=== PATIENT | female | born 1965 | race Two or more races ===

== ENCOUNTER 2018-09-28 07:17 | Day surgery (SDC) | payer OTHER ==
[~2018-09-28 07:17] MED LIST: CIPRO500 MG PO; PRILOSEC2.5 MG; PYRIDIUM200 MG PO; ZANTAC300 MG
== END 2018-09-28 12:15 | disposition home or self-care (01) ==
LOC: AMB-ENDOS 07:17
DX: K62.1 Rectal polyp (principal); K64.8 Other hemorrhoids

== ENCOUNTER 2021-08-23 11:07 | Emergency (ER) | payer OTHER ==
[~2021-08-23] VITALS: Ht 180.3 cm; Wt 111.1 kg
== END 2021-08-23 16:30 | disposition home or self-care (01) ==
LOC: ER 11:07
DX: M15.8 Other polyosteoarthritis (principal); M19.90 Unspecified osteoarthritis, unspecified site; Z88.8 Allergy status to other drugs, medicaments and biological substances

== ENCOUNTER 2022-08-24 17:57 | Emergency (ER) | payer OTHER ==
[~2022-08-24] VITALS: Ht 180.3 cm; Wt 113.4 kg
[~2022-08-24 17:57] MED LIST changes: +DICLOFENAC SODI50 MG; +ELAVIL 50 MG; +NEURONTIN300 MG PO
[2022-08-24] MEDS ORDERED: TRAMADOL HCL50 MG PO (18:41)
== END 2022-08-24 22:44 | disposition home or self-care (01) ==
LOC: ER 17:57
DX: G43.909 Migraine, unspecified, not intractable, without status migrainosus (principal); Z88.8 Allergy status to other drugs, medicaments and biological substances